=== PATIENT | male | born 1950 | race Caucasian/White ===

== ENCOUNTER 2017-01-14 05:29 | Inpatient (IN) | payer OTHER, BC ==
[2016-12-16 12:57] VITALS: BMI 31.0
--- NOTE | 2016-12-16 13:28 | PAT Medication Instructions ---
Service Date Dec 16, 2016. Current Home Medication List Albuterol Hfa (Ventolin Hfa), 2-4 PUFFS INH Q6H PRN for Shortness of Breath Amlodipine/Benazepril (Lotrel 5MG/20MG), 1 CAP PO QAM Aspirin (Aspirin), 1 TAB PO QAM Cinnamon (Cinnamon), 1 CAP PO BID Diclofenac Sodium (Topical) (Voltaren 1% Top Gel), 1 DOSE TOP DAILY PRN for Pain Fluticasone Propionate (Nasal) (Allergy Nasal [place] 24 Ho), 1 SPRAY NA DAILY PRN for ALLERGIES Glucosamine-Chondroitin (Osteo Bi-Flex Regular Str), 1 TAB PO BID Loratadine (Loratadine), 10 MG PO QPM Meloxicam (Mobic), 7.5 MG PO BID Multiple Vitamins W/ Minerals (One Daily Mens), 1 TAB PO QAM [place]-3 Fatty Acids (Fish Oil 1200 mg), 1 CAP PO BID Medication Instructions For Your Scheduled Surgery - Hold the following medications 2 weeks prior to surgery: [place]-3 Fatty Acids (Fish Oil 1200 mg), 1 CAP PO BID Glucosamine-Chondroitin (Osteo Bi-Flex Regular Str), 1 TAB PO BID Cinnamon (Cinnamon), 1 CAP PO BID - Hold the following medications 7 days prior to surgery per surgeon's instructions: Meloxicam (Mobic), 7.5 MG PO BID - Hold the following medications 24 hours prior to surgery: Diclofenac Sodium (Topical) (Voltaren 1% Top Gel), 1 DOSE TOP DAILY PRN for Pain - Hold the following medications the morning of surgery: Amlodipine/Benazepril (Lotrel 5MG/20MG), 1 CAP PO QAM Multiple Vitamins W/ Minerals (One Daily Mens), 1 TAB PO QAM - Take the following medications the morning of surgery with a sip of water OTHERWISE NOTHING TO EAT OR DRINK AFTER MIDNIGHT: Aspirin (Aspirin), 1 TAB PO QAM Fluticasone Propionate (Nasal) (Allergy Nasal [place] 24 Ho), 1 SPRAY NA DAILY PRN for ALLERGIES Albuterol Hfa (Ventolin Hfa), 2-4 PUFFS INH Q6H PRN for Shortness of Breath ( use if needed; BRING TO HOSPITAL) - Take the following medications as scheduled the night before surgery: Loratadine (Loratadine), 10 MG PO QPM Albuterol Hfa (Ventolin Hfa), 2-4 PUFFS INH Q6H PRN for Shortness of Breath If you have any questions please call us at [phone] or [phone] or [phone]
[2016-12-16 14:00] LABS: BASO % 0.6 %; BASO ABS # 0.03 K/uL (0-0.2); COMPLETE YES; EOS % 2.2 %; HEMATOCRIT 42.4 % (42-52); IG% 0.2 %; LYMPH % 31.9 %; LYMPH ABS # 1.48 K/uL (1.2-3.4); MEAN CELL VOLUME 89.6 fL (80-100); MEAN CORPUSCULAR HEMOGLOBIN 31.5 pg (25-34); MEAN CORPUSCULAR HGB CONC 35.1 g/dl (32-36); MEAN PLATELET VOLUME 9.6 fL (7.4-10.4); MONO % 10.1 %; PLATELET COUNT 219 K/uL (130-400); RED BLOOD COUNT 4.73 M/uL (4.7-6.1); WHITE BLOOD COUNT 4.64 K/uL (4.8-10.8)
[2016-12-16 14:08] LABS: PROTHROMBIN TIME (PATIENT) 10.5 SECONDS (9.0-12.0)
--- NOTE | 2016-12-16 14:08 | DIAGNOSTIC IMAGING REPORT ---
CHEST PREADMISSION(PA/LAT) CLINICAL HISTORY: Preoperative evaluation. COMPARISON STUDY: Chest radiograph 02/24/2013. FINDINGS: Anterior cervical spine fusion is incidentally noted. There is evidence for bilateral distal clavicular resections. No pneumothorax or pleural effusion is present. There is no evidence of pulmonary edema. Borderline cardiomegaly is noted. Linear bibasilar opacities favor atelectasis or scarring. IMPRESSION: No acute cardiopulmonary findings. Electronically signed by: Kirit Mackenzie M.D. 12/16/2016 2:07 PM Dictated Date/Time: 12/16/2016 2:06 PM
[2016-12-16 14:13] LABS: URINE APPEARANCE CLEAR (CLEAR); URINE BILIRUBIN NEG (NEG); URINE COLOR YELLOW; URINE NITRITE NEG (NEG); URINE PH 7.5 (4.5-7.5); URINE SPECIFIC GRAVITY 1.013 (1.000-1.030); UROBILINOGEN NEG (NEG); ZZUR CULT IF INDIC CLEAN CATCH NO
[2016-12-16 14:23] LABS: MANUAL MICROSCOPIC REQUIRED? NO; REVIEW REQ? NO
[2016-12-16 14:25] LABS: BUN/CREATININE RATIO 15.6 (10-20); CALCIUM 8.5 mg/dl (8.5-10.1); CREATININE 0.67 mg/dl (0.60-1.40); ESTIMATED AVERAGE GLUCOSE 117 mg/dl; HA1C FLAG Normal (Normal); POTASSIUM 3.3 mmol/L (3.5-5.1)
--- NOTE | 2017-01-13 16:55 | History and Physical ---
History & Physical Date & Time of Service: Jan 13, 2017 at 16:51 Chief Complaint: Right Knee Degenerative Joint Disease Primary Care Physician: Nelly Lyons M.D. History of Present Illness Source: patient Past Medical/Surgical History Medical Problems: (1) Benign hypertension Status: Chronic (2) degenerative disc disease Status: Chronic (3) Hyperlipidemia Status: Chronic Social History Smoking Status: Never Smoker Alcohol Use: none Drug Use: none Marital Status: Immunizations History of Influenza Vaccine: Yes Influenza Vaccine Date: Aug 27, 2012 History of Tetanus Vaccine?: Yes Tetanus Immunization Date: November 25, 2007 History of Pneumococcal: Yes Pneumococcal Date: December 02, 2009 History of Hepatitis B Vaccine: No Hepatitis Immunization Date: Mar 29, 2000 Allergies Coded Allergies: No Known Allergies (Verified , 12/16/16) Home Medications Scheduled Amlodipine/Benazepril (Lotrel 5MG/20MG), 1 CAP PO QAM Aspirin (Aspirin), 1 TAB PO QAM Cinnamon (Cinnamon), 1 CAP PO BID Glucosamine-Chondroitin (Osteo Bi-Flex Regular Str), 1 TAB PO BID Loratadine (Loratadine), 10 MG PO QPM Meloxicam (Mobic), 7.5 MG PO BID Multiple Vitamins W/ Minerals (One Daily Mens), 1 TAB PO QAM [place]-3 Fatty Acids (Fish Oil 1200 mg), 1 CAP PO BID Scheduled PRN Albuterol Hfa (Ventolin Hfa), 2-4 PUFFS INH Q6H PRN for Shortness of Breath Diclofenac Sodium (Topical) (Voltaren 1% Top Gel), 1 DOSE TOP DAILY PRN for Pain Fluticasone Propionate (Nasal) (Allergy Nasal [place] 24 Ho), 1 SPRAY NA DAILY PRN for ALLERGIES Review of Systems Constitutional: No fever, No chills, No sweats Eyes: No worsening of vision ENT: No hearing loss, No unusual epistaxis Respiratory: No cough, No shortness of breath Cardiovascular: No chest pain Physical Exam General Appearance: WD/WN, no apparent distress Head: normocephalic, atraumatic Eyes: PERRL, EOMI ENT: normal ENT inspection Neck: supple, no adenopathy Respiratory/Chest: lungs clear Cardiovascular: regular rate, rhythm Abdomen/GI: normal bowel sounds, non tender + crepitation w ROM at Rt knee, 0-125 ROM, medial jt line tenderness, varus, 5/ 5 strength. Impression Assessment and Plan Right Knee OA Plan for Right TKA. Advanced Directives Existing Living Will: Yes Existing Power of Application Manager: Yes
[2017-01-14] VITALS (10 sets, daily range): BP systolic 101–148; BP diastolic 57–79; PULSE 62–84; TEMP 36.5–36.8; O2SAT 92–97; Ht 167.6 cm; Wt 87.0 kg
[~2017-01-14] VITALS: Ht 167.6 cm; Wt 87.0 kg
[~2017-01-14 05:29] MED LIST: AMLO5CAP2 PO; ASPI81CH2 PO; CINN500T PO; DICL1GEL12 TOP; FLUT50SP45; GLUCTAB18 PO; LORA10CA10 PO; MELO7.5T5 PO; MULT-106 PO; OMEG5CAP PO; VNTHFA/IN INH
[2017-01-14] MEDS ORDERED: METOCLOPRAMIDE HCL 10 MG TAB PO SCH (06:00)
[2017-01-14] MEDS ORDERED: ROPIVACAINE 5MG/ML 30 ML 150 MG, BUPIVACAINE/EPINEPHR 0.5% MPF 30 ML, KETOROLAC TROMETH... INFIL SCH ×7 (06:00)
[2017-01-14] MEDS ORDERED: LACTATED RINGER'S 1000ML 1,000 ML IV SCH (06:00)
[2017-01-14] MEDS ORDERED: ACETAMINOPHEN 500 MG TAB PO SCH (06:00)
[2017-01-14] MEDS ORDERED: LACTATED RINGER'S 1000ML IV SCH (06:00)
[2017-01-14] MEDS ORDERED: DEXAMETHASONE 4 MG TAB PO SCH (06:00)
[2017-01-14] MEDS ORDERED: GABAPENTIN 300 MG CAP PO SCH (06:00)
[2017-01-14] MEDS ORDERED: CeleBREX 200 MG CAP PO SCH (06:00)
[2017-01-14] MEDS ORDERED: LACTATED RINGER'S 1000ML 500 ML IV ONE (06:00)
[2017-01-14] MEDS ORDERED: FAMOTIDINE 20 MG TAB PO SCH (06:00)
[2017-01-14] MEDS ORDERED: CEFAZOLIN 2000 MG/60 ML D5W 60 ML IV SCH (06:00)
[2017-01-14] MEDS: TRANEXAMIC ACID INJ 1,000 MG in SODIUM CHLORIDE 0.9% 100ML 100 ML IV SCH ×2 (06:11→06:30)
[2017-01-14] MEDS ORDERED: POVIDONE-IODINE OP SOLN 30 ML BTL ONE (06:52)
[2017-01-14] MEDS ORDERED: BACITRACIN 50000 UNIT VIAL ONE (06:52)
[2017-01-14] MEDS ORDERED: ORTHO JOINT ANESTHETIC ONE (06:52)
[2017-01-14] MEDS ORDERED: FENTANYL CITRATE INJ 50 MCG/1 ML 2 ML VIAL ONE (06:59)
[2017-01-14] MEDS ORDERED: MIDAZOLAM HCL 1 MG/ML 2ML VIAL ONE ×2 (06:59→09:09)
--- NOTE | 2017-01-14 07:28 | History & Physical Bridge Note ---
H&P Re-Evaluation Bridge Note: I have examined the patient, reviewed the History & Physical and in the interval since the performance of the History & Physical I have noted the following changes of clinical significance: No changes noted
[2017-01-14] MEDS ORDERED: BUPIVACAINE/EPINEPHRINE 0.25% 1:200,000 30 ML VIAL ONE (07:38)
[2017-01-14] MEDS ORDERED: BUPIVACAINE 0.5 % 5 MG/1 ML PF 10ML VIAL ONE (07:38)
[2017-01-14] MEDS ORDERED: PROPOFOL IV EMULSION 10 MG/ML 20 ML VIAL IV ONE (07:56)
[2017-01-14] MEDS ORDERED: LIDOCAINE HCL 2% 2 ML VIAL (20MG/ML) ONE (07:56)
[2017-01-14] MEDS ORDERED: HYDROmorphone INJ 1 MG/ML SYR IV PRN (09:00)
[2017-01-14] MEDS ORDERED: EpHEDrine SULFATE INJ 50 MG/ML AMP IV PRN (09:00)
[2017-01-14] MEDS ORDERED: MEPERIDINE HCL 25 MG/ML CARP IV PRN (09:00)
[2017-01-14] MEDS ORDERED: ONDANSETRON INJ 2 MG/ML 2 ML VIAL IV PRN ×2 (09:00→09:30)
[2017-01-14] MEDS ORDERED: FENTANYL CITRATE INJ 50 MCG/1 ML 2 ML VIAL IV PRN (09:00)
[2017-01-14] MEDS ORDERED: ATROPINE SULFATE 0.1 MG/ML 5ML SYR IV PRN (09:00)
[2017-01-14] MEDS ORDERED: LABETALOL HCL IV 5 MG/ML 20ML IV PRN (09:00)
[2017-01-14] MEDS ORDERED: EpHEDrine SULFATE 50MG/5ML SYR ONE (09:14)
[2017-01-14] MEDS ORDERED: SOD PHOSPHATE/SOD BIPHOSPHATE ENEMA 132 ML BTL PR PRN (09:30)
[2017-01-14] MEDS ORDERED: FLUTICASONE PROPIONATE NA SPR 16 GM BTL PRN (09:30)
[2017-01-14] MEDS ORDERED: ALBUTEROL HFA 8 GM INHALER INH PRN (09:30)
[2017-01-14] MEDS ORDERED: METOCLOPRAMIDE HCL INJ 5 MG/ML 2 ML VIAL IV PRN (09:30)
[2017-01-14] MEDS ORDERED: BISACODYL 10 MG SUPP PR PRN (09:30)
[2017-01-14] MEDS ORDERED: ZOLPIDEM TARTRATE 5 MG TAB PO PRN (09:30)
[2017-01-14] MEDS ORDERED: MoRPHine SULFATE 2 MG/ML CARP IV PRN ×2 (09:30→11:15)
[2017-01-14] MEDS ORDERED: MAGNESIUM HYDROXIDE SUSP 30 ML UDC PO PRN (09:30)
--- NOTE | 2017-01-14 09:39 | [facility] Operative Report ---
Operative Report Operative Date Jan 14, 2017. Pre-Operative Diagnosis Right knee degenerative joint disease Post-Operative Diagnosis same Procedure(s) Performed Right total knee arthroplasty Surgeon Dr. العراقي Senior Writer Surgeon(s) Newton Burgos PA-C Estimated Blood Loss 5 cc Findings Tricompartmental DJD grade 4 medial compartment. Specimens A: right knee bone and tissue Indications End-stage DJD OA Description of Procedure The patient was taken to the operating room and anesthetized under spinal anesthetic by adductor nerve block and later orthomix. Patient was placed supine on the the operating table. A pneumatic tourniquet was placed about the right upper thigh. The knee exam demonstrated that he had a stiff knee had a 10 flexion contracture and flexion only 115 -120. An anterior longitudinal incision was made across the knee. Skin flaps were elevated. An incision was made into the medial retinaculum and extended up into the mid third of the quadriceps tendon and extended down to the tibial tubercle. Intra-articular findings demonstrated tracking normal DJD but grade 4 in the knee compartment. The knee was exposed by excising cruciate ligaments and menisci. The infrapatellar fat pad was resected. The fat pad over the anterior femur at the upper aspect of the articular surface was resected for placement of the component in that area. A subperiosteal peel lateral release was performed around the patella. The total knee arthroplasty system was utilized for the procedure. The custom femoral cutting guide was pinned in position. The distal femoral cut was made. The size 5, 5 in 1 cutting block was placed. The anterior posterior and chamfer cuts were made. The knee was extended and a free hand cut technique was performed to the patella. The patella with was measured and the width was reproduced using a 32 mm patella component. 3 drill holes are made for the patella component pegs. The tibia was then subluxed. The custom tibial cutting block was pinned in position and the proximal tibial cut was made with the oscillating saw. The size 5 tibial trial was externally rotated in line with the tibial tubercle and pinned in position. The punch for the stem was used and the collet was placed. Tibial trials were used for the insert. The size 9 mm trial gave balanced ligaments through full range of motion. Patella tracking was assessed with range of motion. The patella tracked centrally. The trials were removed. The Orthomix anesthetic cocktail was injected per protocol. The cut bone surfaces and soft tissue were copiously irrigated with antibiotic solution with bacitracin. The final components were cemented with Simplex cement. The final components were the 5 Oxinium posterior stabilized Mccauley nephew journey 2.0 femur and the 5 tibial baseplate and the 9 mm high flex posterior stabilized polyethylene and the 32 mm patella. While the cement cured the Betadine soak was used per protocol. When the cement cured the knee was copiously irrigated with pulsatile lavage antibiotic solution with bacitracin. 2 drains were brought out laterally connected to Hemovac. The quadriceps tendon and medial midaxial were closed with interrupted [id number] #1 Vicryl sutures. The knee was taken through full range of motion and repair was secure. The subcutaneous tissues were closed and did 2-0 Vicryl sutures. The skin was closed with. A sterile dressing was applied. The tourniquet was let down and the patient had good capillary refill to the extremity. The patient tolerated the procedure well. My physician certified nursing assistant Alfredo CASTRO assisted in the procedure including prepping draping leg positioning soft tissue retraction instrument management and assisted in the closure ,dressings application and will participate in postoperative care the patient. I attest to the content of the Intraoperative Record and any orders documented therein. Any exceptions are noted below.
--- NOTE | 2017-01-14 09:49 | DIAGNOSTIC IMAGING REPORT ---
RIGHT KNEE 2 VIEWS CLINICAL HISTORY: Postoperative examination COMPARISON: None. DISCUSSION: There are postsurgical changes of a total right knee arthroplasty and patellar resurfacing. The femoral and tibial components appear well seated. Overlying skin aleksandra and surgical drains are visualized. There is air within the soft tissues consistent with recent surgery. IMPRESSION: Postsurgical changes of a total right knee arthroplasty. Electronically signed by: Alejo Herman M.D. 01/14/2017 9:48 AM Dictated Date/Time: 01/14/2017 9:47 AM
--- NOTE | 2017-01-14 11:10 | Anesthesiology Progress Note ---
Anesthesia Post Op Note Date & Time Jan 14, 2017 at 11:09 Vital Signs Pain Intensity: 0.0 Vital Signs Past 12 Hours Date Time Temp Pulse Resp B/P (MAP) Pulse Ox O2 Delivery O2 Flow Rate FiO2 01/14/17 10:42 80 16 125/79 (94) 92 Nasal Cannula 2.0 01/14/17 10:20 Nasal Cannula 2.0 01/14/17 10:15 94 Nasal Cannula 2.0 01/14/17 10:13 36.5 73 16 126/65 (85) 92 Nasal Cannula 2.0 01/14/17 10:00 84 19 115/65 94 Nasal Cannula 2 01/14/17 09:50 36.3 88 16 135/79 94 Nasal Cannula 2 01/14/17 09:40 65 14 128/65 100 Mask 10 01/14/17 09:30 79 15 122/67 99 Mask 10 01/14/17 09:23 36.2 82 19 117/64 94 Mask 10 01/14/17 05:43 36.7 65 18 148/65 97 Room Air Notes Mental Status: alert / awake / arousable, participated in evaluation Pt Amnestic to Procedure: Yes Nausea / Vomiting: adequately controlled Pain: adequately controlled Airway Patency, RR, SpO2: stable & adequate BP & HR: stable & adequate Hydration State: stable & adequate Neuraxial Anesthesia: was administered, sensory block is resolving Anesthetic Complications: no major complications apparent
[2017-01-14] MEDS ORDERED: MoRPHine SULFATE 4 MG/ML 1 ML CARP\\VIAL IV PRN (11:15)
[2017-01-14] MEDS: D5W AND 1/2NSS + 20MEQ KCL 1,000 ML IV SCH ×2 (11:32→21:35)
[2017-01-14] MEDS: ACETAMINOPHEN 500 MG TAB PO SCH ×2 (13:34→21:00)
[2017-01-14] MEDS: CEFAZOLIN IV 2,000 MG in DEXTROSE 5% 50ML 50 ML IV SCH ×2 (15:56→23:23)
--- NOTE | 2017-01-14 17:53 | Medical Consult ---
Consultation Date of Consultation: Jan 14, 2017. Attending Physician: Panchito العراقي M.D. Reason for Consultation: Management of Medical Problems History of Present Illness 66 Year old male with known past medial history of Hypertension, Hyperlipidemia , Chronic DJD underwent Right TKA earlier today and is doing well post- operatively. Lying in his bed and is awake/alert. pain has been tolerable with the help of pain medications. Denies any nausea/vomiting/SOB. Social History Smoking Status: Never Smoker Smokeless Tobacco Use: No Alcohol Use: none Drug Use: none Marital Status: Housing Status: lives with family Occupation Status: retired Allergies Coded Allergies: No Known Allergies (Verified , 01/14/17) Current Inpatient Medications Current Inpatient Medications Medications (Trade) Dose Ordered Sig/Keyanna Route Start Time Stop Time Status Last Admin Dose Admin Cefazolin Sodium 60 ml @ 100 mls/hr PREOP IV 01/14/17 06:00 01/14/17 18:00 01/14/17 07:35 100 MLS/HR Acetaminophen (Tylenol Tab) 1,000 mg PREOP PO 01/14/17 06:00 01/14/17 18:00 01/14/17 06:10 1,000 MG Celecoxib (CeleBREX CAP) 200 mg PREOP PO 01/14/17 06:00 01/14/17 18:00 01/14/17 06:11 200 MG Dexamethasone (Decadron Tab) 8 mg PREOP PO 01/14/17 06:00 01/14/17 18:00 01/14/17 06:10 8 MG Famotidine (Pepcid Tab) 20 mg PREOP PO 01/14/17 06:00 01/14/17 18:00 01/14/17 06:10 20 MG Gabapentin (Neurontin Cap) 300 mg PREOP PO 01/14/17 06:00 01/14/17 18:00 01/14/17 06:09 300 MG Metoclopramide HCl (Reglan Tab) 10 mg PREOP PO 01/14/17 06:00 01/14/17 18:00 01/14/17 06:09 10 MG Tranexamic Acid 1000 mg/Sodium Chloride 110 ml @ 660 mls/hr TODAY@06,0630 IV 01/14/17 06:00 01/14/17 18:00 01/14/17 06:11 660 MLS/HR Albuterol (Ventolin Hfa Inhaler) as above Q6H PRN INH 01/14/17 09:30 02/13/17 09:29 Fluticasone Propionate (Flonase Nasal [place]) 1 sprays DAILY PRN NA 01/14/17 09:30 02/13/17 09:29 Loratadine (Claritin Tab) 10 mg QPM PO 01/14/17 21:00 02/13/17 20:59 Potassium Chloride/Dextrose/ Sod Cl 1,000 ml @ 100 mls/hr Q10H IV 01/14/17 12:00 01/15/17 11:59 01/14/17 11:32 100 MLS/HR Cefazolin Sodium 2000 mg/Dextrose 60 ml @ 100 mls/hr Q8H IV 01/14/17 16:00 01/15/17 00:35 01/14/17 15:56 100 MLS/HR Celecoxib (CeleBREX CAP) 200 mg BID PO 01/14/17 21:00 02/13/17 20:59 Oxycodone HCl (Roxicodone Immediate Rel Tab) 1 TABLET FOR PAIN RATING... Q4H PRN PO 01/14/17 09:30 01/28/17 09:29 Oxycodone HCl (Oxycontin Tab) 10 mg Q12 PO 01/14/17 21:00 01/28/17 20:59 Acetaminophen (Tylenol Tab) 1,000 mg Q8H PO 01/14/17 14:00 02/13/17 13:59 01/14/17 13:34 1,000 MG Magnesium Hydroxide (Milk Of Magnesia Susp) 30 ml Q6H PRN PO 01/14/17 09:30 02/13/17 09:29 Bisacodyl (Dulcolax Supp) 10 mg DAILY PRN VA 01/14/17 09:30 02/13/17 09:29 Sodium Biphosphate/ Sodium Phosphate (Fleet Enema) 132 ml DAILY PRN VA 01/14/17 09:30 02/13/17 09:29 Docusate Sodium (coLACE CAP) 100 mg BID PO 01/14/17 21:00 02/13/17 20:59 Diphenhydramine HCl (Benadryl Cap) 25 mg Q8H PRN PO 01/14/17 09:30 02/13/17 09:29 Zolpidem Tartrate (Ambien Tab) 5 mg HSZ PRN PO 01/14/17 09:30 02/13/17 09:29 Multivitamins (Multivitamin Tab) 1 tab QAM PO 01/15/17 09:00 02/14/17 08:59 Ondansetron HCl (Zofran Inj) 4 mg Q6H PRN IV 01/14/17 09:30 02/13/17 09:29 Metoclopramide HCl (Reglan Inj) 10 mg Q6H PRN IV 01/14/17 09:30 02/13/17 09:29 Pantoprazole Sodium (Protonix Tab) 40 mg QAM PO 01/15/17 09:00 02/14/17 08:59 Tramadol HCl (Ultram Tab) 1 tablet for pain rating... Q4H PRN PO 01/14/17 09:30 02/13/17 09:29 Aspirin (Ecotrin Tab) 81 mg BID PO 01/14/17 21:00 02/13/17 20:59 Morphine Sulfate (MoRPHine SULFATE INJ) 2 mg Q2H PRN IV 01/14/17 11:15 01/28/17 11:14 Morphine Sulfate (MoRPHine SULFATE INJ) 4 mg Q2H PRN IV 01/14/17 11:15 01/28/17 11:14 Amlodipine Besylate (Norvasc Tab) 5 mg QAM PO 01/15/17 09:00 02/14/17 08:59 Enalapril Maleate (Vasotec Tab) 20 mg QAM PO 01/15/17 09:00 02/14/17 08:59 Review of Systems As per history of present illness, all other ROS negative Physical Exam Date Time Temp Pulse Resp B/P (MAP) Pulse Ox O2 Delivery O2 Flow Rate FiO2 01/14/17 16:28 93 Room Air 01/14/17 14:56 36.8 77 18 101/60 (74) 96 Nasal Cannula 2.0 01/14/17 13:14 84 16 117/69 (85) 97 Nasal Cannula 2.0 01/14/17 12:18 74 18 115/67 (83) 95 Nasal Cannula 2.0 01/14/17 11:15 78 16 120/69 (86) 94 Nasal Cannula 2.0 01/14/17 10:42 80 16 125/79 (94) 92 Nasal Cannula 2.0 01/14/17 10:20 Nasal Cannula 2.0 01/14/17 10:15 94 Nasal Cannula 2.0 01/14/17 10:13 36.5 73 16 126/65 (85) 92 Nasal Cannula 2.0 01/14/17 10:00 84 19 115/65 94 Nasal Cannula 2 01/14/17 09:50 36.3 88 16 135/79 94 Nasal Cannula 2 01/14/17 09:40 65 14 128/65 100 Mask 10 01/14/17 09:30 79 15 122/67 99 Mask 10 01/14/17 09:23 36.2 82 19 117/64 94 Mask 10 01/14/17 05:43 36.7 65 18 148/65 97 Room Air General Appearance: WD/WN, In no apparent distress Head: normocephalic, atraumatic Eyes: PERRL, EOMI ENT: normal ENT inspection Neck: supple, Midline trachea, no adenopathy Respiratory/Chest: lungs clear B/L on auscultation Cardiovascular: regular rate, rhythm Abdomen/GI: normal bowel sounds, non tender Extremities: B/L pedal pulses are present. can move toes of the right foot. Assessment & Plan S/P Right Knee Arthroplasty: POD # 0. Clinically & hemodynamically doing well. -Pain medications as needed as per severity of pain -PT/OT & DVT Prophylaxis as per Surgical team -Bowel regimen Hypokalemia: Due to IVF. -Replace -Check labs in AM Hypertension: Monitoring BP closely -Continue home medications from AM under parameters. Dyslipidemia: Stable. Thank you for this consultation. We will follow the patient with you during their hospital stay. You can reach a [facility] of [facility]/02 via pager @ .
[2017-01-14] MEDS ORDERED: POTASSIUM CHLORIDE 20 MEQ TABCR PO ONE (18:00)
[2017-01-14] MEDS: OXYCODONE HCL IR 5 MG TAB (IMMEDIATE RELEASE) PO PRN (19:34)
[2017-01-14] MEDS: OXYCODONE HCL 10 MG TABCR (OXYCONTIN) PO SCH (20:57)
[2017-01-14] MEDS: ASPIRIN 81 MG ECTAB PO SCH (20:58)
[2017-01-14] MEDS: LORATADINE 10 MG TAB PO SCH (20:58)
[2017-01-14] MEDS: CeleBREX 200 MG CAP PO SCH (20:59)
[2017-01-14] MEDS: DOCUSATE SODIUM 100 MG CAP PO SCH (20:59)
[2017-01-14] MEDS ORDERED: CINNAMON PO SCH (21:00)
[2017-01-15 03:01] VITALS: BP 112/61; PULSE 59; TEMP 36.6; O2SAT 96
[2017-01-15] MEDS: ACETAMINOPHEN 500 MG TAB PO SCH ×3 (05:25→21:32)
[2017-01-15 05:47] LABS: HEMATOCRIT 33.9 % (42-52); MEAN CELL VOLUME 90.6 fL (80-100); MEAN CORPUSCULAR HGB CONC 34.2 g/dl (32-36); MEAN PLATELET VOLUME 10.3 fL (7.4-10.4); PLATELET COUNT 206 K/uL (130-400); RED BLOOD COUNT 3.74 M/uL (4.7-6.1)
[2017-01-15 06:14] LABS: BUN/CREATININE RATIO 17.8 (10-20); CALCIUM 8.2 mg/dl (8.5-10.1); CREATININE 0.78 mg/dl (0.60-1.40); MAGNESIUM 2.4 mg/dl (1.8-2.4); POTASSIUM 4.2 mmol/L (3.5-5.1)
[2017-01-15] MEDS: D5W AND 1/2NSS + 20MEQ KCL 1,000 ML IV SCH (07:38)
[2017-01-15 08:16] VITALS: BP 132/70; PULSE 59; TEMP 36.5; O2SAT 98
--- NOTE | 2017-01-15 08:29 | Orthopedic Progress Note ---
Orthopedic Progress Note Date of Service Jan 15, 2017. Subjective Post OP Day: 1 Reports: feeling well, pain controlled w PO medications, Denies: complaints, chest pain, SOB, nausea / vomiting, light headedness, calf pain Objective calves soft nontender, N/V intact, capillary refill less than 2 sec., dressing C /D/I, A&O x3, toes mobile Date Time Temp Pulse Resp B/P (MAP) Pulse Ox O2 Delivery O2 Flow Rate FiO2 01/15/17 08:16 36.5 59 16 132/70 (90) 98 Room Air 01/15/17 03:01 36.6 59 16 112/61 (78) 96 Room Air 01/14/17 23:23 Room Air 01/14/17 23:13 36.5 62 14 108/57 (74) 96 Room Air 01/14/17 19:33 36.8 66 18 114/65 (81) 94 Room Air 01/14/17 16:28 93 Room Air 01/14/17 15:15 Room Air 01/14/17 14:56 36.8 77 18 101/60 (74) 96 Nasal Cannula 2.0 01/14/17 13:14 84 16 117/69 (85) 97 Nasal Cannula 2.0 01/14/17 12:18 74 18 115/67 (83) 95 Nasal Cannula 2.0 01/14/17 11:15 78 16 120/69 (86) 94 Nasal Cannula 2.0 01/14/17 10:42 80 16 125/79 (94) 92 Nasal Cannula 2.0 01/14/17 10:20 Nasal Cannula 2.0 01/14/17 10:15 94 Nasal Cannula 2.0 01/14/17 10:13 36.5 73 16 126/65 (85) 92 Nasal Cannula 2.0 01/14/17 10:00 84 19 115/65 94 Nasal Cannula 2 01/14/17 09:50 36.3 88 16 135/79 94 Nasal Cannula 2 01/14/17 09:40 65 14 128/65 100 Mask 10 01/14/17 09:30 79 15 122/67 99 Mask 10 01/14/17 09:23 36.2 82 19 117/64 94 Mask 10 Laboratory Results 24 Hours: Test 01/15/17 05:07 Hematocrit 33.9 % Hemoglobin 11.6 g/dL Assessment & Plan Assessment: POD #1, Right TKA Plan: PT/OT DVT proph- ASA D/C planning- OPPT As per medicine Inhouse Planning Pain Management: Celebrex, Oxycontin, Ultram, Morphine, PO Tylenol, Oxy IR DVT Prophylaxis: TEDs, SCDs, ASA Discharge Planning Discharge Planning: home with oppt Pain Management: Celebrex, Oxycontin, PO Tylenol, Oxy IR DVT Prophylaxis: TEDs, ASA Therapy: Physical Therapy, Occupational Therapy
[2017-01-15] MEDS ORDERED: AMLODIPINE PO SCH (09:00)
[2017-01-15] MEDS ORDERED: BENAZEPRIL PO SCH (09:00)
[2017-01-15] MEDS: CeleBREX 200 MG CAP PO SCH ×2 (09:22→21:31)
[2017-01-15] MEDS: ASPIRIN 81 MG ECTAB PO SCH ×2 (09:22→21:31)
[2017-01-15] MEDS: OXYCODONE HCL 10 MG TABCR (OXYCONTIN) PO SCH ×2 (09:23→21:31)
[2017-01-15] MEDS: ENALAPRIL MALEATE 10 MG TAB PO SCH (09:23)
[2017-01-15] MEDS: MULTIVITAMIN TAB PO SCH (09:23)
[2017-01-15] MEDS: PANTOprazole SOD 40 MG TAB PO SCH (09:24)
[2017-01-15] MEDS: DOCUSATE SODIUM 100 MG CAP PO SCH ×2 (09:24→21:31)
[2017-01-15] MEDS: AMLODIPINE BESYLATE 5 MG TAB PO SCH (09:24)
[2017-01-15 12:06] VITALS: BP 110/72; PULSE 62; TEMP 36.4; O2SAT 97
[2017-01-15] MEDS: OXYCODONE HCL IR 5 MG TAB (IMMEDIATE RELEASE) PO PRN ×3 (12:27→21:33)
[2017-01-15 15:24] VITALS: BP 118/65; PULSE 62; TEMP 36.4; O2SAT 95
--- NOTE | 2017-01-15 17:07 | Progress Note ---
Internal Med Progress Note Date of Service: Jan 15, 2017. Provider Documentation: SUBJECTIVE: Patient is sitting in his chair and does not seem to be in any distress. Pain has been tolerable. Did PT earlier today. Had a small BM earlier today. No other new change or complaint. OBJECTIVE: Vital Signs-as noted below Examination: General Appearance: WD/WN, In no apparent distress Head: normocephalic, atraumatic Eyes: PERRL, EOMI ENT: normal ENT inspection Neck: supple, Midline trachea, no adenopathy Respiratory/Chest: lungs clear B/L on auscultation Cardiovascular: regular rate, rhythm Abdomen/GI: normal bowel sounds, non tender Extremities: B/L pedal pulses are present. can move toes of the right foot. Lab data as noted below. ASSESSMENT & PLAN: S/P Right Knee Arthroplasty: POD # 1. Clinically & hemodynamically doing well. -Pain medications as needed as per severity of pain -PT/OT & DVT Prophylaxis as per Surgical team -Bowel regimen Hypokalemia: Resolved. Hypertension: Monitoring BP closely -Continue home medications under parameters. Dyslipidemia: Stable. Thank you for this consultation. We will follow the patient with you during their hospital stay. You can reach a [facility] 02/02 via pager @ . Vital Signs: Date Time Temp Pulse Resp B/P (MAP) Pulse Ox O2 Delivery O2 Flow Rate FiO2 01/15/17 15:24 36.4 62 18 118/65 (82) 95 Room Air 01/15/17 15:15 Room Air 01/15/17 12:06 36.4 62 18 110/72 (85) 97 Room Air 01/15/17 08:30 Room Air 01/15/17 08:16 36.5 59 16 132/70 (90) 98 Room Air 01/15/17 03:01 36.6 59 16 112/61 (78) 96 Room Air 01/14/17 23:23 Room Air 01/14/17 23:13 36.5 62 14 108/57 (74) 96 Room Air 01/14/17 19:33 36.8 66 18 114/65 (81) 94 Room Air Lab Results: Results Past 24 Hours Test 01/15/17 05:07 Range/Units White Blood Count 14.20 4.8-10.8 K/uL Red Blood Count 3.74 4.7-6.1 M/uL Hemoglobin 11.6 14.0-18.0 g/dL Hematocrit 33.9 42-52 % Mean Corpuscular Volume 90.6 80-100 fL Mean Corpuscular Hemoglobin 31.0 25-34 pg Mean Corpuscular Hemoglobin Concent 34.2 32-36 g/dl RDW Standard Deviation 41.6 36.4-46.3 fL RDW Coefficient of Variation 12.5 11.5-14.5 % Platelet Count 206 130-400 K/uL Mean Platelet Volume 10.3 7.4-10.4 fL Sodium Level 141 136-145 mmol/L Potassium Level 4.2 3.5-5.1 mmol/L Chloride Level 111 98-107 mmol/L Carbon Dioxide Level 23 21-32 mmol/L Anion Gap 7.0 3-11 mmol/L Blood Urea Nitrogen 14 7-18 mg/dl Creatinine 0.78 0.60-1.40 mg/dl Est Creatinine Clear Calc Drug Dose 96.3 ml/min Estimated GFR () 109.0 Estimated GFR (Non- 94.1 BUN/Creatinine Ratio 17.8 10-20 Random Glucose 135 70-99 mg/dl Calcium Level 8.2 8.5-10.1 mg/dl Magnesium Level 2.4 1.8-2.4 mg/dl
[2017-01-15] MEDS: LORATADINE 10 MG TAB PO SCH (21:31)
[2017-01-15 23:03] VITALS: BP 117/65; PULSE 55; TEMP 36.6; O2SAT 99
[2017-01-16] MEDS: TRAMADOL HCL 50 MG TAB PO PRN ×2 (00:48→09:06)
[2017-01-16] MEDS: ACETAMINOPHEN 500 MG TAB PO SCH ×2 (05:45→14:22)
[2017-01-16] MEDS: OXYCODONE HCL IR 5 MG TAB (IMMEDIATE RELEASE) PO PRN ×2 (05:46→16:36)
[2017-01-16 06:00] VITALS: BP 123/72; PULSE 64; TEMP 36.5; O2SAT 95
[2017-01-16 06:03] LABS: HEMATOCRIT 31.5 % (42-52); MEAN CELL VOLUME 93.2 fL (80-100); MEAN CORPUSCULAR HEMOGLOBIN 31.7 pg (25-34); MEAN PLATELET VOLUME 10.4 fL (7.4-10.4); PLATELET COUNT 187 K/uL (130-400); RED BLOOD COUNT 3.38 M/uL (4.7-6.1); WHITE BLOOD COUNT 7.85 K/uL (4.8-10.8)
[2017-01-16 06:30] LABS: BUN/CREATININE RATIO 20.2 (10-20); CALCIUM 8.1 mg/dl (8.5-10.1); CREATININE 0.78 mg/dl (0.60-1.40); POTASSIUM 3.9 mmol/L (3.5-5.1)
[2017-01-16 07:45] VITALS: BP 112/58; PULSE 63; TEMP 36.4; O2SAT 95
--- NOTE | 2017-01-16 08:52 | Discharge Instructions ---
Discharge Instructions Date of Service Jan 16, 2017. Admission Reason for Admission: Right Knee Degenerative Joint Disease Discharge Discharge Diagnosis / Problem: Right Knee Djd Discharge Goals Goal(s): Decrease discomfort, Improve function Activity Recommendations Activity Limitations: per Instructions/Follow-up section Weightbearing Status: Left weightbearing (as tolerated) . Instructions / Follow-Up Instructions / Follow-Up ACTIVITY RECOMMENDATIONS: SELF CARE INSTRUCTIONS AFTER TOTAL KNEE REPLACEMENT A. You may need to continue a physical therapy program after discharge from the hospital. There are several options available to you. Your doctor will assist you in selecting the best one for you. 1. An out-patient facility 2 to 3 times a week for therapy or home therapy. 2. Continue working on all exercises taught to you in the hospital. Your goals should be to increase bending of your knee to 90 degrees and beyond and to fully straighten your knee. B. You may progress at your own pace from walking with a walker or crutches to a cane; then to no assistive devices. C. Make walking a part of your daily routine. Be up as much as comfortable with rest periods throughout the day. Rest with leg elevation is very important. Use the ice wrap frequently for the first 3-4 weeks. D. There are no restrictions on activities. You may ride in a car, shop, participate in snow remover and all social activities. E. Wear the long elastic stockings (JOSEFINA hose) 20 hours a day for 2 weeks after surgery. They can be removed several times a day for laundering and for a bath. F. You may shower, no tub baths until cleared by your doctor. SPECIAL CARE INSTRUCTIONS: VERY IMPORTANT TO READ AND REVIEW A. There are a few signs you need to watch for after you are home. Call [facility] if you notice any of the followin. Increased severe knee pain. Some pain is expected especially when you exercise. 2. Increased swelling in your leg or knee; pain or swelling of the calf muscle in either lower leg. 3. Any fluid drainage from the incision. 4. Shortness of breath or chest pain. B. Please call [facility] at if you have any concerns or questions about your operation or recovery. The doctor or his nurse will return your call promptly. C. You must take antibiotics before dental work, bladder, bowel or other surgery. Your doctor will provide you with a permanent care to carry describing this precaution. IMPORTANT: * REMEMBER TO TAKE ASPIRIN, 81 MG, TWICE DAILY FOR 4 WEEKS UNLESS OTHERWISE DIRECTED. THIS IS YOUR BLOOD THINNER. * HIGH RISK PATIENTS MAY BE PRESCRIBED A STRONGER BLOOD THINNER. THIS WILL BE PROVIDED AT DISCHARGE. * CALL IF INCREASED PAIN, REDNESS, DRAINAGE OR FEVER GREATER THAT 101. * WEAR JOSEFINA HOSE 20 HOURS PER DAY FOR 2 WEEKS. * Silverlon- This is a large adhesive bandage that contains silver ions. This helps your incision heal by fighting off bacteria and protecting it from the outside environment. You are permitted to shower with this dressing. This will remain on your incision for 7 days and then should be removed. Some visible blood or drainage through the dressing window is normal. If there is significant drainage or leaking noted before the 7 days notify your doctor's office immediately. Once removed, keep incision clean and dry. If there is any drainage or redness noted, please call your surgeon. . FOLLOW UP VISIT: If appointment is not already scheduled: Please call [facility] to make a follow-up appointment for 2 weeks after your surgery at . Current Hospital Diet Patient's current hospital diet: Regular Diet Discharge Diet Recommended Diet: Regular Diet Procedures Procedures Performed: Right total knee arthroplasty Pending Studies Studies pending at discharge: no Laboratory Results Hemoglobin A1c Test 12/16/16 13:41 Range/Units Estimated Average Glucose 117 mg/dl Hemoglobin A1c 5.7 H 4.5-5.6 % Medical Emergencies . Who to Call and When: Medical Emergencies: If at any time you feel your situation is an emergency, please call 911 immediately. . Non-Emergent Contact Non-Emergency issues call your: Surgeon Call Non-Emergent contact if: temperature is above 101.5, your pain is not controlled, your pain is worsening, wound has increased drainage, wound has increased redness . "Provider Documentation" section prepared by Kartik Flor. . VTE Core Measure Inpt VTE Proph given/why not?: Other Anticoagulation, T.E.D. Stockings, SCD's [place] Drug Monitoring Program Search Results: patient reviewed within database, no issues identified
[2017-01-16 08:53] VITALS: O2SAT 95
[2017-01-16] MEDS ORDERED: CLB200 PO (08:57)
[2017-01-16] MEDS ORDERED: SNK PO (08:57)
[2017-01-16] MEDS ORDERED: OXYSR10 PO (08:57)
[2017-01-16] MEDS ORDERED: ASPI81CH2 PO (08:57)
[2017-01-16] MEDS ORDERED: RXC5 PO (08:57)
[2017-01-16] MEDS ORDERED: ACET-24 PO (08:57)
[2017-01-16] MEDS: PANTOprazole SOD 40 MG TAB PO SCH (09:00)
[2017-01-16] MEDS: CeleBREX 200 MG CAP PO SCH (09:03)
[2017-01-16] MEDS: DOCUSATE SODIUM 100 MG CAP PO SCH (09:03)
[2017-01-16] MEDS: ASPIRIN 81 MG ECTAB PO SCH (09:03)
[2017-01-16] MEDS: MULTIVITAMIN TAB PO SCH (09:04)
[2017-01-16] MEDS: AMLODIPINE BESYLATE 5 MG TAB PO SCH (09:05)
[2017-01-16] MEDS: ENALAPRIL MALEATE 10 MG TAB PO SCH (09:05)
[2017-01-16] MEDS: OXYCODONE HCL 10 MG TABCR (OXYCONTIN) PO SCH (09:06)
--- NOTE | 2017-01-16 09:09 | Orthopedic Progress Note ---
Orthopedic Progress Note Date of Service Jan 16, 2017. Subjective Post OP Day: 2 Reports: feeling well, Denies: complaints Objective calves soft nontender, N/V intact, dressing C/D/I (Silverlon intact), A&O x3, toes mobile Date Time Temp Pulse Resp B/P (MAP) Pulse Ox O2 Delivery O2 Flow Rate FiO2 01/16/17 08:53 95 Room Air 01/16/17 07:45 36.4 63 16 112/58 (76) 95 Room Air 01/16/17 06:00 36.5 64 18 123/72 (89) 95 Room Air 01/16/17 00:30 Room Air 01/15/17 23:03 36.6 55 14 117/65 (82) 99 Room Air 01/15/17 15:24 36.4 62 18 118/65 (82) 95 Room Air 01/15/17 15:15 Room Air 01/15/17 12:06 36.4 62 18 110/72 (85) 97 Room Air Laboratory Results 24 Hours: Test 01/16/17 05:04 Hematocrit 31.5 % Hemoglobin 10.7 g/dL Assessment & Plan Assessment: POD #2, Right TKA Plan: PT/OT DVT proph- ASA D/C planning- OPPT Plan for dc to home today Inhouse Planning Pain Management: Celebrex, Oxycontin, Ultram, Morphine, PO Tylenol, Oxy IR DVT Prophylaxis: TEDs, SCDs, ASA Discharge Planning Discharge Planning: home with oppt Pain Management: Celebrex, Oxycontin, PO Tylenol, Oxy IR DVT Prophylaxis: TEDs, ASA Therapy: Physical Therapy, Occupational Therapy
[2017-01-16 13:07] VITALS: BP 112/58; PULSE 63; TEMP 36.4; O2SAT 95
--- NOTE | 2017-01-16 16:39 | Progress Note ---
Internal Med Progress Note Date of Service: Jan 16, 2017. Provider Documentation: SUBJECTIVE: Patient is sitting in his chair and does not seem to be in any distress. Pain has been tolerable. Did PT earlier today. Had a small BM yesterday. No other new change or complaint. OBJECTIVE: Vital Signs-as noted below Examination: General Appearance: WD/WN, In no apparent distress Head: normocephalic, atraumatic Eyes: PERRL, EOMI ENT: normal ENT inspection Neck: supple, Midline trachea, no adenopathy Respiratory/Chest: lungs clear B/L on auscultation Cardiovascular: regular rate, rhythm Abdomen/GI: normal bowel sounds, non tender Extremities: B/L pedal pulses are present. can move toes of the right foot. Lab data as noted below. ASSESSMENT & PLAN: S/P Right Knee Arthroplasty: POD # 2. Clinically & hemodynamically doing well. -Pain medications as needed as per severity of pain -PT/OT & DVT Prophylaxis as per Surgical team -Bowel regimen Hypokalemia: Resolved. Hypertension: Monitoring BP closely -Continue home medications under parameters. Dyslipidemia: Stable. Thank you for this consultation. We will follow the patient with you during their hospital stay. You can reach a [facility] via pager @ [phone]. Medical conditions are stable and discharge planning as per Primary team. Vital Signs: Date Time Temp Pulse Resp B/P (MAP) Pulse Ox O2 Delivery O2 Flow Rate FiO2 01/16/17 13:07 36.4 63 16 95 Room Air 01/16/17 09:21 Room Air 01/16/17 08:53 95 Room Air 01/16/17 07:45 36.4 63 16 112/58 (76) 95 Room Air 01/16/17 06:00 36.5 64 18 123/72 (89) 95 Room Air 01/16/17 00:30 Room Air 01/15/17 23:03 36.6 55 14 117/65 (82) 99 Room Air Lab Results: Results Past 24 Hours Test 01/16/17 05:04 01/16/17 05:08 Range/Units White Blood Count 7.85 4.8-10.8 K/uL Red Blood Count 3.38 4.7-6.1 M/uL Hemoglobin 10.7 14.0-18.0 g/dL Hematocrit 31.5 42-52 % Mean Corpuscular Volume 93.2 80-100 fL Mean Corpuscular Hemoglobin 31.7 25-34 pg Mean Corpuscular Hemoglobin Concent 34.0 32-36 g/dl RDW Standard Deviation 43.9 36.4-46.3 fL RDW Coefficient of Variation 12.8 11.5-14.5 % Platelet Count 187 130-400 K/uL Mean Platelet Volume 10.4 7.4-10.4 fL Sodium Level 144 136-145 mmol/L Potassium Level 3.9 3.5-5.1 mmol/L Chloride Level 110 98-107 mmol/L Carbon Dioxide Level 30 21-32 mmol/L Anion Gap 4.0 3-11 mmol/L Blood Urea Nitrogen 16 7-18 mg/dl Creatinine 0.78 0.60-1.40 mg/dl Est Creatinine Clear Calc Drug Dose 96.3 ml/min Estimated GFR () 109.0 Estimated GFR (Non- 94.1 BUN/Creatinine Ratio 20.2 10-20 Random Glucose 90 70-99 mg/dl Calcium Level 8.1 8.5-10.1 mg/dl
--- NOTE | 2017-01-20 11:14 | Discharge Summary ---
Orthopedic Discharge Summary Admission Date/Reason Jan 14, 2017 at 07:15 Right Knee Degenerative Joint Disease. Discharge Date/Disposition Jan 16, 2017 Home Diagnosis Principal Diagnosis: Right knee OA Secondary Diagnoses/Problems: Hypertension, Hyperlipidemia, Chronic DJD Procedure(s) Performed Right TKA Consultations Medical, PT Medication Reconciliation PRe admissions meds, ASA, pain ;meds. Admission Physical Exam As per Admitting History & Physical. Hospital Course Had post op hypokalemia at 3.3, was given K+ per medicine and stabilized at 3.9 on D/C, otherwise patient did well post operatively. Discharge Instructions Please refer to the electronic Patient Visit Report (Discharge Instructions) for additional information.
== END 2017-01-16 16:57 | disposition home or self-care (01) | DRG 470 ==
LOC: C.ACU 05:29 → C.3E 07:15 → ENRESERV 09:57
PROVIDERS: ADMIT Orthopaedic Surgery Sports Medicine; ATTEND Orthopaedic Surgery Sports Medicine
PROC: 0SRC0J9 Replacement of Right Knee Joint with Synthetic Substitute, Cemented, Open Approach (ICD-10-PCS; principal; 2017-01-14 07:30)
DX: M17.11 Unilateral primary osteoarthritis, right knee (principal); I10 Essential (primary) hypertension; M19.90 Unspecified osteoarthritis, unspecified site; E78.5 Hyperlipidemia, unspecified; E87.6 Hypokalemia; Z79.82 Long term (current) use of aspirin; Z79.899 Other long term (current) drug therapy

== ENCOUNTER 2018-08-30 07:35 | Inpatient (IN) ==
--- NOTE | 2018-08-18 10:34 | Anesthesiology Consultation ---
Date of Service August 18, 2018 Assessment & Plan (1) Encounter for pre-operative examination: Chart Review Chart Review: Acceptable Risk for Surgery and Patient seen in Pre Admission Testing Consults Requested none Teaching & Discussion Pre-Anesthesia Teaching/Discussion Notes: Instructed NPO after midnight before surgery, except medications with 15 cc of water. Medication instructions provided according to the PAT guidelines. History Surgery Operation Date: 08/30/18 07:45 Proposed Procedures p L2-L3 Decompression and Fusion, Possible L1-L2 Insitu; L3-L4 Removal Medicrea Hardware - Ezequiel Tinsley DO Height/Weight Height: 5 ft 6.5 in Weight: 89.1 kg Allergies Allergy/AdvReac Type Severity Reaction Status Date / Time Vcxxlsh-Mhd-Otc Reductase AdvReac Unknown MUSCLE Verified 08/13/18 10:11 Inhibitor WEAKNESS SEASONAL ALLERGIES Allergy Unknown SNEEZING, Uncoded 08/13/18 10:06 ITCHY EYES, STUFFY NOSE Medications Home Medications Medication Instructions Recorded Confirmed Last Taken acetaminophen 500 mg tablet 1,000 mg PO Q8 PRN tab 03/30/18 08/13/18 Unknown albuterol sulfate HFA 90 2 puffs INH Q6H PRN 03/30/18 08/13/18 Unknown mcg/actuation aerosol inhaler amlodipine 5 mg-benazepril 20 mg 1 cap PO QAM 03/30/18 08/13/18 08/13/18 capsule aspirin 81 mg chewable tablet 81 mg PO QPM 03/30/18 08/13/18 08/12/18 cinnamon bark 500 mg capsule 500 mg PO BID cap 03/30/18 08/13/18 Unknown diclofenac 1 % topical gel 2 gm TOP QID PRN 03/30/18 08/13/18 Unknown fluticasone 50 mcg/actuation nasal 1 sprays INTNAS DAILY PRN 03/30/18 08/13/18 Unknown spray,suspension loratadine 10 mg tablet 10 mg PO QPM 03/30/18 08/13/18 08/12/18 multivitamin tablet 1 tab PO QPM 03/30/18 08/13/18 08/12/18 omega-3 fatty acids 1,000 mg 1,000 mg PO BID cap 03/30/18 08/13/18 Unknown capsule meloxicam 7.5 mg PO DAILY 08/18/18 08/18/18 Unknown Past Medical History Medical History Hypertension (Chronic) Lumbar postlaminectomy syndrome (Chronic) Lumbar spinal stenosis (Chronic) Moderate L2-3 Lumbar stenosis with neurogenic claudication (Chronic 03/15/14) Restless leg syndrome (Chronic) Right knee DJD (Resolved) Arthritis HANDS History of hyperlipidemia History of wisdom tooth extraction Past Surgical History Surgical History H/O arthroscopy of shoulder (Resolved) Bilateral History of lumbar fusion (Resolved) 3 TOTAL BACK SURGERIES - UPCOMING WILL BE 4TH 03/15/14 - ETT 7.5, MAC #3, Secured @ 21cm, Grade 1 View. History of total knee arthroplasty (Resolved) Right Status post cervical spinal fusion (Resolved) History of appendectomy History of arthroscopy of right knee X3 History of colonoscopy History of uvulopalatopharyngoplasty Past Anesthesia History No Hx of Anesthesia Complications and No Family Hx of Anesthesia Complications History of PONV No Motion Sickness Screening History of Motion Sickness: No Social History Smoking Status: Never smoker Do You Dip or Chew Tobacco: No Hx Alcohol Use: Yes Alcohol type: wine alcohol intake frequency: holidays/special occasions only Hx Substance Use: No substance use type: does not use Exercise / Class Metabolic Activity II 4-5 Yardwork/Stairs/Walk up hill (Able to climb FOS. Denies CP or SOB. ) Review of Systems Patient denies chest pain, shortness of breath, dyspnea on exertion, reflux, cough, wheezing, palpitations. +joint pain (hands, back) Physical Exam Vital Signs BP: 149/81 P: 78 R: 16 T: 98.1 SPO2: 96% on RA ENMT Thyromental Distance: > or= 3.5 Finger Breadths (3.5) Mallampati Class: II Mouth / Teeth: 2 1. s/p UPPP Neck normal visual inspection and trachea midline Respiratory normal respiratory effort Auscultation: lungs clear to auscultation bilaterally Cardiovascular Rate/Rhythm: regular rate and regular rhythm Heart Sounds: no murmur Vessels: no carotid bruit Neurologic moves all extremities Psychiatric Orientation: alert and oriented x 3 Testing Electrocardiogram Date: 08/18/18 Findings: + NSR @ (71), + NSST changes and + no change from (12/16/16) Left axis deviation. Chest X-Ray Date: 08/18/18 Findings: + NAD FINDINGS: Incidental note is made of an anterior cervical spine fusion. The lung volumes are normal. There is no pneumothorax or pleural effusion. Linear left basilar opacity suggest atelectasis or scarring. There is no consolidation or evidence for pulmonary edema. There is no change in appearance of the chest. IMPRESSION: No acute cardiopulmonary findings. Stress Test Date: 04/15/13 Type: exercise Adequate test. No EKG or Echocardiographic evidence of exercise induced myocardial ischemia. Normal blood pressure response. He had "burning sensation" over the left lower anterior chest throughout the test, including the recovery period. He attained 95% of MPHR and 7 MET workload. Resting ECHO: Normal wall motion. Left ventricular systolic function is normal. Overall, LVEF is normal. Exercise ECHO: Augmentation of contractility noted in all segments. Left ventricular systolic function is normal. No wall motion abnormalities. Laboratory Results 08/18/18 11:08 08/18/18 11:08 Blood Type A Positive 08/18/18 11:08 Antibody Screen NEGATIVE 08/18/18 11:08 PT 10.3 Seconds (9.0-12.0) 08/18/18 11:08 INR 1.0 (0.9-1.1) 08/18/18 11:08 APTT 25.7 Seconds (21.0-31.0) 08/18/18 11:08 Urine Color Yellow 08/18/18 Unknown Urine Appearance Clear (Clear) 08/18/18 Unknown Urine pH 8.0 (4.5-7.5) H 08/18/18 Unknown Ur Specific [place] 1.010 (1.000-1.030) 08/18/18 Unknown Urine Protein Negative (Negative) 08/18/18 Unknown Urine Glucose (UA) 1+ (Negative) H 08/18/18 Unknown Urine Ketones Negative (Negative) 08/18/18 Unknown Urine Nitrite Negative (Negative) 08/18/18 Unknown Ur Leukocyte Esterase Negative (Negative) 08/18/18 Unknown
--- NOTE | 2018-08-18 10:34 | PAT Medication Instructions ---
Medication Instructions Date of Service August 18, 2018 Home Medications acetaminophen 500 mg tablet 1,000 mg PO Q8 NEEDED albuterol sulfate HFA 90 mcg/actuation aerosol inhaler 2 puffs INH Q6H NEEDED amlodipine 5 mg-benazepril 20 mg 1 cap PO QAM aspirin 81 mg chewable tablet 81 mg PO QPM cinnamon bark 500 mg capsule 500 mg PO BID diclofenac 1 % topical gel 2 gm TOP QID NEEDED fluticasone 50 mcg/actuation nasal 1 sprays INTNAS DAILY NEEDED loratadine 10 mg tablet 10 mg PO QPM multivitamin tablet 1 tab PO QPM omega-3 fatty acids 1,000 mg 1,000 mg PO BID meloxicam 7.5 mg PO DAILY ASK your surgeon for instructions meloxicam 7.5 mg PO DAILY STOP taking 2 weeks before surgery cinnamon bark 500 mg capsule 500 mg PO BID omega-3 fatty acids 1,000 mg 1,000 mg PO BID STOP taking 24 hours before surgery diclofenac 1 % topical gel 2 gm TOP QID NEEDED DO NOT take the morning of surgery amlodipine 5 mg-benazepril 20 mg 1 cap PO QAM fluticasone 50 mcg/actuation nasal 1 sprays INTNAS DAILY NEEDED Take morning of surgery With a small sip of water, OTHERWISE NOTHING TO EAT OR DRINK AFTER MIDNIGHT: acetaminophen 500 mg tablet 1,000 mg PO Q8 NEEDED albuterol sulfate HFA 90 mcg/actuation aerosol inhaler 2 puffs INH Q6H NEEDED Take evening before surgery acetaminophen 500 mg tablet 1,000 mg PO Q8 NEEDED albuterol sulfate HFA 90 mcg/actuation aerosol inhaler 2 puffs INH Q6H NEEDED aspirin 81 mg chewable tablet 81 mg PO QPM loratadine 10 mg tablet 10 mg PO QPM multivitamin tablet 1 tab PO QPM Other Notes If you have any questions please call us at [phone] or [phone] or [phone] or [phone]
[2018-08-18 11:36] LABS: Basophils # (auto) 0.01 K/uL (0-0.2); Basophils % (auto) 0.2 %; Eosinophils # (auto) 0.09 K/uL (0-0.5); Eosinophils % (auto) 2.1 %; Hematocrit (blood only) 44.6 % (42-52); Hemoglobin 15.5 g/dL (14.0-18.0); Lymphocytes # (auto) 1.61 K/uL (1.2-3.4); Lymphocytes % (auto) 38.3 %; Mean Corpuscular Hgb Conc 34.8 g/dL (32-36); Mean Corpuscular Volume 89.6 fL (80-100); Mean Platelet Volume 10.2 fL (7.4-10.4); Monocytes # (auto) 0.33 K/uL (0.11-0.59); Monocytes % (auto) 7.9 %; Neutrophils # (auto) 2.16 K/uL (1.4-6.5); Neutrophils % (auto) 51.5 %; Platelet Count 223 K/uL (130-400); RDW Coefficient of Variation 12.3 % (11.5-14.5); RDW Standard Deviation 39.3 fL (36.4-46.3); Red Blood Count 4.98 M/uL (4.7-6.1)
[2018-08-18 11:41] LABS: Appearance Urine Clear (Clear); Bilirubin Urine Negative (Negative); Color Urine Yellow; Glucose Urine UA 1+ (Negative); Ketones Urine Negative (Negative); Leukocyte Esterase Urine Negative (Negative); Nitrite Urine Negative (Negative); Protein Urine Negative (Negative); Urobilinogen Urine Negative (Negative)
[2018-08-18 11:47] LABS: Partial Thromboplastin Time 25.7 Seconds (21.0-31.0); Prothrombin Time 10.3 Seconds (9.0-12.0)
[2018-08-18 11:49] LABS: Calcium 9.1 mg/dl (8.5-10.1); Creatinine Clr Calc Pharmacy 114.8 ml/min; Est GFR (African American) 115.9; Potassium 3.4 mmol/L (3.5-5.1)
--- NOTE | 2018-08-18 12:12 | XRay Report ---
XR chest Pre-admission PA/Lat CLINICAL HISTORY: Preoperative evaluation COMPARISON STUDY: Chest radiograph December 16, 2016. FINDINGS: Incidental note is made of an anterior cervical spine fusion. The lung volumes are normal. There is no pneumothorax or pleural effusion. Linear left basilar opacity suggest atelectasis or scar ring. There is no consolidation or evidence for pulmonary edema. There is no change in appearance of the chest. IMPRESSION: No acute cardiopulmonary findings. Electronically signed by: Kirit Mackenzie M.D. 08/18/2018 12:11 PM
[~2018-08-30 07:35] MED LIST changes: +ACETAMINOPHEN 500 MG TAB PO SCH; -AMLO5CAP2 PO; -ASPI81CH2 PO; +CEFAZOLIN 2000MG 2,000 MG/15 ML SYR IV SCH; -CINN500T PO; +CeleBREX 200 MG CAP PO SCH; -DICL1GEL12 TOP; -FLUT50SP45; +GABAPENTIN 300 MG PO SCH; -GLUCTAB18 PO; +HYDROmorphone INJ 2 MG/ML SYR/VIAL ONE; -LORA10CA10 PO; +LR 15ML/HR IV SCH; -MELO7.5T5 PO; -MULT-106 PO; -OMEG5CAP PO; -VNTHFA/IN INH; +fentaNYL citrate 100 MCG/2 ML VIAL ONE
[2018-08-30] MEDS ORDERED: MIDAZOLAM HCL 1 MG/ML 2ML VIAL ONE (08:24)
[2018-08-30] MEDS ORDERED: fentaNYL citrate 100 MCG/2 ML VIAL ONE ×4 (08:25→10:52)
[2018-08-30] MEDS ORDERED: DEXAMETHASONE SOD INJ 4 MG/ML VIAL ONE (08:25)
[2018-08-30] MEDS ORDERED: HYDROmorphone INJ 2 MG/ML SYR/VIAL ONE (08:25)
[2018-08-30] MEDS ORDERED: ONDANSETRON INJ 2 MG/ML 2 ML VIAL ONE (08:25)
[2018-08-30] MEDS ORDERED: NEOSTIGMINE METHYLSULFATE 1 MG/ML 10ML VIAL ONE (08:25)
[2018-08-30] MEDS ORDERED: PROPOFOL IV EMULSION 10 MG/ML 20 ML VIAL IV ONE (08:25)
[2018-08-30] MEDS ORDERED: ROCURONIUM BROMIDE 10 MG/ML 5 ML VIAL ONE (08:25)
[2018-08-30] MEDS ORDERED: LIDOCAINE HCL 2% 2 ML VIAL/AMP(20MG/ML) INFIL ONE (08:25)
[2018-08-30] MEDS ORDERED: GLYCOPYRROLATE 0.2 MG/ML VIAL ONE (08:25)
[2018-08-30] MEDS ORDERED: LARYING-O-JET KIT (LTA) ONE (08:33)
[2018-08-30] MEDS ORDERED: MEPERIDINE HCL 25 MG/ML CARP IV PRN (08:37)
[2018-08-30] MEDS ORDERED: ONDANSETRON INJ 2 MG/ML 2 ML VIAL IV PRN ×2 (08:37→12:29)
[2018-08-30] MEDS ORDERED: LABETALOL HCL IV 5 MG/ML 20ML IV PRN (08:37)
[2018-08-30] MEDS ORDERED: fentaNYL citrate 100 MCG/2 ML VIAL IV PRN (08:37)
[2018-08-30] MEDS ORDERED: ePHEDrine sulfate 50 MG/ML AMP IV PRN (08:37)
[2018-08-30] MEDS ORDERED: PHENYLEPHRINE 100MCG/ML 5ML SYR IV PRN (08:37)
[2018-08-30] MEDS ORDERED: ATROPINE SULFATE 0.1 MG/ML 10ML SYR IV PRN (08:37)
[2018-08-30] MEDS ORDERED: HYDROmorphone INJ 1 MG/ML SYRINGE IV PRN (08:37)
--- NOTE | 2018-08-30 08:54 | History & Physical Bridge Note ---
Date of Service August 30, 2018 History & Physical Bridge Note I have examined the patient, reviewed the History & Physical and in the interval since the performance of the History & Physical I have noted the following changes of clinical significance: no changes noted
--- NOTE | 2018-08-30 08:56 | History & Physical Report ---
Date of Service August 30, 2018 Assessment & Plan (1) Neurogenic claudication due to lumbar spinal stenosis: Removal medically hardware L3-4, L2-3 decompression and fusion possible L1 -L2 in situ Present on Admission?: Yes History of Present Illness Chief Complaint: Back and leg pain Primary Care Provider: Zeb Rider This is a 68-year-old male well-known to me that presents with chronic persistent back and leg pain. After failing extensive course of nonoperative care is here for surgical intervention. Allergies Allergy/AdvReac Type Severity Reaction Status Date / Time Aigavvm-Bex-Mjp Reductase AdvReac Unknown MUSCLE Verified 08/30/18 08:04 Inhibitor WEAKNESS SEASONAL ALLERGIES Allergy Unknown SNEEZING, Uncoded 08/30/18 08:04 ITCHY EYES, STUFFY NOSE Home Medications Home Medications Medication Instructions Recorded Confirmed Type acetaminophen 500 mg tablet 1,000 mg PO Q8 PRN tab 03/30/18 08/30/18 History albuterol sulfate HFA 90 2 puffs INH Q6H PRN 03/30/18 08/30/18 History mcg/actuation aerosol inhaler amlodipine 5 mg-benazepril 20 mg 1 cap PO QAM 03/30/18 08/30/18 History capsule aspirin 81 mg chewable tablet 81 mg PO QPM 03/30/18 08/30/18 History cinnamon bark 500 mg capsule 500 mg PO BID cap 03/30/18 08/30/18 History diclofenac 1 % topical gel 2 gm TOP QID PRN 03/30/18 08/30/18 History fluticasone 50 mcg/actuation nasal 1 sprays INTNAS DAILY PRN 03/30/18 08/30/18 History spray,suspension loratadine 10 mg tablet 10 mg PO QPM 03/30/18 08/30/18 History multivitamin tablet 1 tab PO QPM 03/30/18 08/30/18 History omega-3 fatty acids 1,000 mg 1,000 mg PO BID cap 03/30/18 08/30/18 History capsule meloxicam 7.5 mg PO DAILY 08/18/18 08/30/18 History Past Med/Surg History Medical History Hypertension (Chronic) Lumbar postlaminectomy syndrome (Chronic) Lumbar spinal stenosis (Chronic) Moderate L2-3 Lumbar stenosis with neurogenic claudication (Chronic 03/15/14) Restless leg syndrome (Chronic) Right knee DJD (Resolved) Arthritis HANDS History of hyperlipidemia Social History Current Living Situation: Spouse Other Information That Helps Us Care for You: No Feels Safe at Home: Yes Smoking Status: Never smoker Do You Dip or Chew Tobacco: No Hx Alcohol Use: Yes Alcohol type: wine Alcohol Intake Frequency: holidays/ special occasions only Hx Substance Use: No Beliefs That Will Affect Care: None Preferred Language: Serbian Communication Ability: Effective Engineering Illustrator Required: No Physical Exam 2 Vital Signs (Past 24 Hours): Last Vital Signs Temp 36.8 C 08/30/18 08:01 Pulse 75 08/30/18 08:01 Resp 20 08/30/18 08:01 BP 164/90 H 08/30/18 08:01 Pulse Ox 96 08/30/18 08:01 Results & Data Medications Administered Acetaminophen (Tylenol) 1,000 mg PO PREOP SYED Stop: 08/30/18 18:00 Last Admin: 08/30/18 08:26 Dose: 1,000 mg Celecoxib (Celebrex) 200 mg PO PREOP SYED Stop: 08/30/18 18:00 Last Admin: 08/30/18 08:25 Dose: 200 mg Gabapentin (Neurontin) 300 mg PO PREOP SYED Stop: 08/30/18 18:00 Last Admin: 08/30/18 08:25 Dose: 300 mg Lactated Ringer's (Lr) 1,000 mls @ 15 mls/hr IV .Q24H SYED Stop: 08/31/18 05:59 Last Admin: 08/30/18 08:38 Dose: 15 mls/hr
[2018-08-30] MEDS ORDERED: BACITRACIN INJ 50,000 UNIT VIAL ONE (09:04)
[2018-08-30] MEDS ORDERED: BUPIVACAINE/EPINEPHRINE 0.5% MPF 1:200,000 30 ML VIAL ONE (09:05)
[2018-08-30] MEDS ORDERED: FLOSEAL HEMOSTATIC MATRIX 10ML TOP ONE (09:54)
[2018-08-30] MEDS ORDERED: KETOROLAC 30 MG/ML VIAL ONE (11:18)
--- NOTE | 2018-08-30 11:24 | Operative Report ---
Post Operative Report Pre & Post Diagnosis Operation Date: 08/30/18 09:35 Pre-Op Diagnosis: LUMBAR SPINAL STENOSIS W/NEUROGENIC CLAUDICATION Post-Op Diagnosis: LUMBAR SPINAL STENOSIS W/NEUROGENIC CLAUDICATION Procedure Operation Date: 08/30/18 09:35 Actual Procedures #1 removal of posterior instrumentation L3-4. #2 exploration of fusion L3-4. # 3 lumbar decompression bilateral medial facetectomies foraminotomies L1-L2 3. # 4 posterior spinal fusion L1-L2 3 #5 placement posterior instrumentation L2-3. #6 interbody fusion L2-3. #7 placement of peek 9 x 22 mm cage L2-3. #8 placement of local autograft in the posterior lateral gutters. #9 placement infuse collagen sponge, mass graft in the posterior gutters and ostial amp and interbody space. Surgeon Ezequiel Tinsley DO Student Dean Alyssa Savage Estimated Blood Loss 400 Findings Consistent with Post-Op Diagnosis Specimens None Description of Procedure Patient was met with preoperatively case discussed all questions addressed. After informed consent obtained patient was taken to the operative suite underwent intubation and placed in a prone position the Sam table on top of the [place] frame. All bony prominences well-padded eyes inspected to ensure no external pressure placed upon. This point the lumbar spine was prepped and draped in normal sterile fashion. Sharp dissection with the assistance of Bovie cautery was performed down to and exposing the lamina and transverse process of L1-L2 and instrumentation at all 3 4 bilaterally. And then proceeded to remove the hardware bilaterally exploring the fusion mass noting it to be intact. A complete laminectomy of L to L3 was performed including medial facetectomies foraminotomies addressing severe stenosis. Screws were then placed bilaterally at L2 and L3. Through a transforaminal approach on the right complete discectomy was performed in endplate curetted to subcortical bleeding bone and a 9 x 26 mm peek cage filled with osteo-amp bone graft tapped in position. The rods were then compressed locked in final position bilaterally. The transverse processes of L1-L2 and L3 burred to subcortical bleeding bone. Infuse collagen sponge mass graft local autograft placed in the posterior gutters. 15 round CHRISTOS drain inserted. Incision was then closed with 1 Vicryl fascia 2-0 Vicryl subcutaneous and 4 Monocryl for final skin closure. Please note Alyssa Savage was present at the entire procedure involved the patient positioning complex portions of the surgery and final skin closure. I attest to the content of the Intraoperative Record and any orders documented therein. Any exceptions are noted below.
--- NOTE | 2018-08-30 11:50 | Fluoroscopy Report ---
FL lumbar spine 2-3V HISTORY: 68 years-old Male REMOVE L3-4/L2-3 DECOMPRESSION/FUSION/POSS L1-2 status post surgery of th e lumbar spine COMPARISON: Fluoroscopic images 10/05/2017 TECHNIQUE: 2 spot fluoroscopic images of the lumbar spine were obtained utilizing 13.4 seconds fluoro scopy time FINDINGS: Posterior interbody flaca and screw fusion hardware is noted at what appears to be the L2-L3 level, exa ct level is not definitive secondary to magnification of the images. Discectomy changes are noted at what appears to be the L2-L3, L3-L4 and L4-L5 levels. Multilevel spondylitic spurring and facet arthr osis. No acute fracture or subluxation identified. IMPRESSION: Fluoroscopic assistance as above. Please see operative report for further details. The above report was generated using voice recognition software. It may contain grammatical, syntax o r spelling errors. Electronically signed by: David Mon M.D. 08/30/2018 11:49 AM
[2018-08-30] MEDS ORDERED: ESMOLOL HCL INJ 10 MG/ML 10ML VIAL IV ONE (12:01)
--- NOTE | 2018-08-30 12:20 | Anesthesiology Progress Note ---
Date of Service August 30, 2018 Anesthesia Post Procedure Vital Signs Vital Signs: Temp Pulse Pulse Resp BP Pulse Ox 08/30/18 12:15 75 18 146/80 H 99 08/30/18 12:05 36.1 C L 75 15 152/84 H 100 08/30/18 11:55 88 16 147/82 H 99 08/30/18 11:45 96 H 16 138/79 98 08/30/18 11:39 36.5 C 93 H 14 130/76 96 08/30/18 08:01 36.8 C 75 20 164/90 H 96 Pain Intensity Posterior Back: Pain Intensity: 3 Notes Mental Status: alert / awake / arousable Patient Amnestic to Procedure: Yes Nausea / Vomiting: adequately controlled Pain: adequately controlled Airway Patency, RR, SpO2: stable & adequate BP & HR: stable & adequate Hydration State: stable & adequate Anesthetic Complications: no major complications apparent and Pt Satisfied with anesthetic care
[2018-08-30] MEDS ORDERED: LORazepam 0.5 MG TAB PO PRN (12:29)
[2018-08-30] MEDS ORDERED: TRAMADOL HCL 50 MG TABLET PO PRN (12:29)
[2018-08-30] MEDS ORDERED: DO NOT ADMINISTER PNEUMOCOCCAL VACCINE PRN (12:29)
[2018-08-30] MEDS ORDERED: PROMETHAZINE HCL 12.5 MG in SODIUM CHLORIDE 0.9% 50 ML IV PRN (12:29)
[2018-08-30] MEDS ORDERED: ALBUTEROL HFA 8 GM INHALER INH PRN (12:29)
[2018-08-30] MEDS ORDERED: DO NOT ADMINISTER FLU VACCINE PRN (12:29)
[2018-08-30] MEDS ORDERED: OXYCODONE HCL IR 5 MG TAB (IMMEDIATE RELEASE) PO PRN (12:29)
[2018-08-30] MEDS ORDERED: SOD PHOSPHATE/SOD BIPHOSPHATE ENEMA 132 ML BTL PR PRN (12:29)
[2018-08-30] MEDS ORDERED: ONDANSETRON 4 MG TAB PO PRN (12:29)
[2018-08-30] MEDS ORDERED: MAGNESIUM HYDROXIDE SUSP 30 ML UDC PO PRN (12:29)
[2018-08-30] MEDS ORDERED: METOCLOPRAMIDE HCL INJ 5 MG/ML 2 ML VIAL IV PRN (12:29)
[2018-08-30] MEDS ORDERED: LORazepam 0.5 MG/1 ML VIAL IV PRN (12:29)
[2018-08-30] MEDS ORDERED: ALUMINUM/MAGNESIUM SUSP 30 ML UDC PO PRN (12:29)
[2018-08-30] MEDS ORDERED: ACETAMINOPHEN 500 MG TAB PO PRN ×2 (12:29)
[2018-08-30] MEDS ORDERED: FAMOTIDINE 20 MG TAB PO PRN (12:29)
[2018-08-30] MEDS ORDERED: ACETAMINOPHEN 1,000 MG/100 ML VIAL IV PRN (12:29)
[2018-08-30] MEDS ORDERED: HYDROmorphone INJ 0.5 MG/0.5 ML SYR IV PRN (12:29)
[2018-08-30] MEDS ORDERED: BISACODYL 10 MG SUPP PR PRN (12:29)
[2018-08-30] MEDS ORDERED: VOLUVEN IN NSS IV ONE (12:53)
[2018-08-30] MEDS: LACTATED RINGER'S 1,000 ML IV SCH ×2 (14:41→18:31)
[2018-08-30] MEDS: CEFAZOLIN 2000MG 2,000 MG/15 ML SYR IV SCH (17:02)
[2018-08-30] MEDS: KETOROLAC TROMETHAMINE 15 MG/ML VIAL IV SCH (19:37)
[2018-08-30] MEDS: MULTIVITAMIN TAB PO SCH (20:21)
[2018-08-30] MEDS: OMEGA-3 (PURIFIED FISH OIL) 1 GM CAP PO SCH (20:21)
[2018-08-30] MEDS: DOCUSATE SODIUM/SENNA 50/8.6MG TAB PO SCH (20:21)
[2018-08-30] MEDS: ASPIRIN 81 MG ECTAB PO SCH (20:21)
[2018-08-30] MEDS: LORATADINE 10 MG TAB PO SCH (20:21)
[2018-08-31] MEDS: KETOROLAC TROMETHAMINE 15 MG/ML VIAL IV SCH ×3 (01:13→13:18)
[2018-08-31] MEDS: CEFAZOLIN 2000MG 2,000 MG/15 ML SYR IV SCH (01:13)
[2018-08-31] MEDS ORDERED: Nursing to Pharmacy Communication ONE (01:27)
[2018-08-31] MEDS: POLYETHYLENE (MIRALAX) 17 GM PACK PO SCH ×4 (05:39→23:42)
[2018-08-31 05:58] LABS: Basophils # (auto) 0.01 K/uL (0-0.2); Basophils % (auto) 0.1 %; Eosinophils # (auto) 0.01 K/uL (0-0.5); Eosinophils % (auto) 0.1 %; Hematocrit (blood only) 33.9 % (42-52); Hemoglobin 11.7 g/dL (14.0-18.0); Immature Granulocytes # (auto) 0.03 K/uL (0.00-0.02); Immature Granulocytes % (auto) 0.2 %; Lymphocytes # (auto) 1.26 K/uL (1.2-3.4); Lymphocytes % (auto) 9.2 %; Mean Corpuscular Hgb Conc 34.5 g/dL (32-36); Mean Corpuscular Volume 90.2 fL (80-100); Mean Platelet Volume 10.1 fL (7.4-10.4); Monocytes # (auto) 1.09 K/uL (0.11-0.59); Neutrophils # (auto) 11.26 K/uL (1.4-6.5); Neutrophils % (auto) 82.4 %; Platelet Count 206 K/uL (130-400); RDW Coefficient of Variation 12.5 % (11.5-14.5); RDW Standard Deviation 40.6 fL (36.4-46.3); Red Blood Count 3.76 M/uL (4.7-6.1); White Blood Count 13.66 K/uL (4.8-10.8)
[2018-08-31 06:39] LABS: BUN Creatinine Ratio 14.5 (10-20); Calcium 8.2 mg/dl (8.5-10.1); Creatinine Clr Calc Pharmacy 91.4 ml/min; Est GFR (African American) 105.8; Est GFR (Non-African American) 91.3; Potassium 3.4 mmol/L (3.5-5.1)
[2018-08-31] MEDS: AMLODIPINE BESYLATE 5 MG TAB PO SCH (08:52)
[2018-08-31] MEDS: ENALAPRIL MALEATE 10 MG TAB PO SCH (08:52)
[2018-08-31] MEDS: OMEGA-3 (PURIFIED FISH OIL) 1 GM CAP PO SCH ×2 (08:53→20:26)
--- NOTE | 2018-08-31 10:19 | Orthopedic Progress Note ---
Date of Service August 31, 2018 Assessment & Plan (1) Neurogenic claudication due to lumbar spinal stenosis: At this time we will continue physical therapy monitor his CHRISTOS output anticipate discharge home in the next few days. Present on Admission?: Yes Subjective Back pain is controlled leg symptoms markedly improved. Physical Exam 2 Vital Signs (Past 24 Hours): Last Vital Signs Temp 36.5 C 08/31/18 07:00 Pulse 88 08/31/18 07:00 Resp 16 08/31/18 07:00 BP 158/83 H 08/31/18 07:00 Pulse Ox 97 08/31/18 07:00 Physical Exam: Patient is ambulating halls comfortably. His strength is intact.
[2018-08-31] MEDS: DOCUSATE SODIUM/SENNA 50/8.6MG TAB PO SCH (20:26)
[2018-08-31] MEDS: MULTIVITAMIN TAB PO SCH (20:26)
[2018-08-31] MEDS: ASPIRIN 81 MG ECTAB PO SCH (20:26)
[2018-08-31] MEDS: LORATADINE 10 MG TAB PO SCH (20:26)
[2018-09-01] MEDS: POLYETHYLENE (MIRALAX) 17 GM PACK PO SCH ×4 (05:59→22:58)
[2018-09-01] MEDS: ENALAPRIL MALEATE 10 MG TAB PO SCH (08:32)
[2018-09-01] MEDS: AMLODIPINE BESYLATE 5 MG TAB PO SCH (08:33)
[2018-09-01] MEDS: OMEGA-3 (PURIFIED FISH OIL) 1 GM CAP PO SCH ×2 (08:34→20:47)
--- NOTE | 2018-09-01 10:51 | Orthopedic Progress Note ---
Date of Service September 01, 2018 Assessment & Plan (1) Neurogenic claudication due to lumbar spinal stenosis: This time we will continue physical therapy monitor his CHRISTOS output hopefully discharge home tomorrow. Present on Admission?: Yes Subjective Back pain is controlled leg symptoms improved. Physical Exam 2 Vital Signs (Past 24 Hours): Last Vital Signs Temp 36.6 C 09/01/18 07:40 Pulse 70 09/01/18 07:40 Resp 16 09/01/18 07:40 BP 134/74 09/01/18 07:40 Pulse Ox 96 09/01/18 07:40 Physical Exam: On exam he is in the chair at the bedside. He has good strength testing. Appears comfortable.
--- NOTE | 2018-09-01 11:28 | Anesthesiology Progress Note ---
Date of Service August 31, 2018 Anesthesia Post Procedure Vital Signs Vital Signs: Temp Pulse Resp BP Pulse Ox 09/01/18 07:40 36.6 C 70 16 134/74 96 08/31/18 23:06 36.6 C 80 16 117/70 97 08/31/18 15:30 36.8 C 79 22 154/79 H 98 08/31/18 12:00 36.6 C 78 16 133/76 97 Pain Intensity Posterior Back: Pain Intensity: 5 Notes Mental Status: alert / awake / arousable and participated in evaluation Patient Amnestic to Procedure: Yes Nausea / Vomiting: adequately controlled Pain: adequately controlled Airway Patency, RR, SpO2: stable & adequate BP & HR: stable & adequate Hydration State: stable & adequate Anesthetic Complications: no major complications apparent and Pt Satisfied with anesthetic care
[2018-09-01] MEDS: CeleBREX 200 MG CAP PO SCH (12:15)
[2018-09-01] MEDS: MULTIVITAMIN TAB PO SCH (20:47)
[2018-09-01] MEDS: LORATADINE 10 MG TAB PO SCH (20:48)
[2018-09-01] MEDS: ASPIRIN 81 MG ECTAB PO SCH (20:48)
[2018-09-01] MEDS: DOCUSATE SODIUM/SENNA 50/8.6MG TAB PO SCH (20:48)
[2018-09-02] MEDS: POLYETHYLENE (MIRALAX) 17 GM PACK PO SCH ×2 (05:34→11:43)
[2018-09-02] MEDS: ENALAPRIL MALEATE 10 MG TAB PO SCH (07:56)
[2018-09-02] MEDS: OMEGA-3 (PURIFIED FISH OIL) 1 GM CAP PO SCH (07:56)
[2018-09-02] MEDS: AMLODIPINE BESYLATE 5 MG TAB PO SCH (07:56)
[2018-09-02] MEDS: CeleBREX 200 MG CAP PO SCH (07:56)
--- NOTE | 2018-09-02 10:00 | Discharge Summary ---
Date of Service September 02, 2018 Admission HPI Per Admitting Provider This is a 68-year-old male well-known to me that presents with chronic persistent back and leg pain. After failing extensive course of nonoperative care is here for surgical intervention. Principal Diagnosis Lumbar spinal stenosis with neurogenic claudication Discharge Data Allergies Allergy/AdvReac Type Severity Reaction Status Date / Time [id number]-[id number] Reductase AdvReac Unknown MUSCLE Verified 08/30/18 08:04 Inhibitor WEAKNESS SEASONAL ALLERGIES Allergy Unknown SNEEZING, Uncoded 08/30/18 08:04 ITCHY EYES, STUFFY NOSE Consultations 08/30/18 12:29 Consult Case Management - Discharge Planning Routine Procedures Performed Operation Date: 08/30/18 09:35 Actual Procedures p L1-L2 Decompression, L2-L3 Decompression and Fusion; (Not Applicable) - Ezequiel Tinsley DO s L3-L4 Removal of Hardware(Not Applicable) - Ezequiel Tinsley DO Ordered Studies 08/30/18 09:35 FL fluoroscopy <1hr Routine FL lumbar spine 2-3V Routine Hospital Course (1) Neurogenic claudication due to lumbar spinal stenosis: Patient underwent lumbar decompression fusion tolerated as well as taken the orthopedic floor postoperative. Postop day 1 he was up and ambulating nicely. Leg symptoms improved. He progressed to postop day #2 on postop day # 3 was discharged home. Discharge orders and instructions from the chart for further review. Total Time Total Time Spent Total Time Spent (In Minutes): Not applicable Discharge Plan Discharge Items Patient Disposition: Home - Self-Care Reason For Visit: LUMBAR SPINAL STENOSIS W/NEUROGENIC CLAUDICATION Discharge Diagnosis: Lumbar spinal stenosis with neurogenic claudication Discharge Goals: Improve function Activity: Per 'Additional Instructions' section Non-emergency contact: Primary Care Provider Call non-emergency contact if: you have any medication questions Follow-up/Referrals: Zeb Rider M.D. [Primary Care Provider] - Diet: Regular Addtl Provider Instructions: ACTIVITY RECOMMENDATIONS: SELF CARE INSTRUCTIONS AFTER THORACIC/LUMBAR FUSIONS 1. You may walk to your tolerance. It is good exercise for your legs and back. Expect some back and intermittent leg aches and pains. 2. You may perform "counter-top" level activities (make a sandwich, dalton with a project, etc.). 3. No bending or lifting of more than 10 pounds or back twisting of any nature (roll like a log when turning in bed). 4. You may ride in a car for 20-30 minutes at a time. No driving until after your first visit with your doctor. 5. Frequent changes of position and restricting sitting to 30 minutes at a time will help limit the amount of back spasms and stiffness you may experience. 6. You may discontinue the use of ambulatory aids (cane, crutches, etc.) once your strength and confidence allow. 7. You may standards engineer the shower and let water strike your incision when you arrive home at least once daily. Do not take a tub bath, sit in a hot tub or go into a swimming pool until after your first recheck in the office. SPECIAL CARE INSTRUCTIONS: VERY IMPORTANT TO READ AND REVIEW A. Your surgical incision has been closed with a cosmetic suture under the skin that will dissolve in about 6 weeks. In 14 days, you can use a pair of clean scissors and cut the suture that is left outside of the skin at the ends of your incision. 1. The small skin tapes can be removed 7 days after surgery if they have not fallen off by that point. 2. You may keep the wound open to air as much as possible to promote healing after post-op day number 5 unless told otherwise by your doctor. 3. If you think the wound looks like it is becoming infected (redness or worsening drainage) and/or you are experiencing fever, chill or worsening back pain and muscle spasms, contact the office so that we may evaluate you as soon as possible. B. Complications are uncommon, but please contact us if you have any signs or symptoms of: 1. wound infection (fever higher than 102.5 degrees F, redness, separation of wound, drainage, or increasing pain from the incision) 2. blood clots in legs (pain, swelling, redness and warmth in legs) 3. urinary tract infection (fever higher than 102.5 degrees F, burning upon urination or increased frequency of urination) 4. nerve problems (inability to walk on your toes or heels, numbness, loss of bowel or bladder control) 5. any other symptoms that concern you C. Please call the office at if you have any concerns or questions about your operation or recovery. D. No smoking! Smoking drastically decreases the chance of a solid fusion. E. Do not take any anti-inflammatory medications (Indocin, Advil, Motrin, Aspirin, Naprosyn, etc.) as these may inhibit the chance of a solid fusion. Tylenol is okay to take for pain. MANAGING PAIN AFTER SPINAL SURGERY 1. Narcotic medication is intended for short-term use and will be provided for surgical pain. Surgical pain usually lasts for a period of 4-6 weeks. Narcotic medication includes Percocet, Vicodin, Darvocet, Tylenol #3 or Lortab. 2. Longer-term pain is more appropriately treated with non-narcotic medication such as Tylenol ES. 3. Muscle spasm is not appropriately treated with narcotics. Muscle relaxers such as Soma, Flexeril or Skelaxin can be used along with Tylenol ES. 4. Remember that we all live with some "aches and pains". This is not unusual or uncommon after an injury or as we get older. a. Back pain is expected and may include muscle spasms for 4 to 6 weeks after surgery. The pain should gradually improve. If the pain worsens for no apparent reason, please contact the office. b. Intermittent leg pain may also be experienced and should not be concerned about unless it worsens for no apparent reason. If so, please contact the office. 5. We will provide appropriate medication within the normal guidelines of their prescribed use. We will also be very cautious and aware of potential abuse and extended duration of patients' medication needs. a. Pain medications are for your comfort and to assist with sleep and rest so that the tissue can heal. They are not provided in order to return to normal activity and should not be used through the day. To do so or worsening pain at night can result from ongoing tissue damage and development of tolerance to the prescribed medicine. 6. Please allow 2-3 days to process refills. Prescriptions will not be mailed but must be picked up at the office. FOLLOW UP VISIT: Keep your scheduled follow-up appointment. Any questions, please call the office at . Prescriptions: New tramadol 50 mg Tablet 50 mg PO Q4H PRN (Reason: Pain, Moderate) Qty: 30 RF: 0 oxycodone 5 mg Tablet 5 mg PO Q4H PRN (Reason: Pain, Severe) Qty: 30 RF: 0 celecoxib [Celebrex] 200 mg Capsule 200 mg PO QAM Qty: 30 RF: 2 Continue acetaminophen [Tylenol Extra Strength] 500 mg tablet 1,000 mg PO Q8 PRN (Reason: Pain) RF: 0 amlodipine-benazepril [Lotrel] 5-20 mg capsule 1 cap PO QAM RF: 0 aspirin 81 mg tablet,chewable 81 mg PO QPM RF: 0 albuterol sulfate 90 mcg/actuation HFA aerosol inhaler 2 puffs INH Q6H PRN (Reason: SEASONAL ALLERGIES) RF: 0 fluticasone [Flonase Allergy Relief] 50 mcg/actuation spray,suspension 1 sprays INTNAS DAILY PRN (Reason: Nasal Congestion) RF: 0 loratadine 10 mg tablet 10 mg PO QPM RF: 0 cinnamon bark 500 mg capsule 500 mg PO BID RF: 0 diclofenac sodium [Voltaren] 1 % gel 2 gm TOP QID PRN (Reason: Pain) RF: 0 multivitamin tablet 1 tab PO QPM RF: 0 omega-3 fatty acids 1,000 mg capsule 1,000 mg PO BID RF: 0 meloxicam 7.5 mg Tablet 7.5 mg PO DAILY RF: 0 Stand-Alone Forms: [facility] Discharge Orders: Discharge Order (Routine); Ordered 09/02/18 Ordered By: Ezequiel Tinsley Admission Data Admit Date/Time: 08/30/18 11:29 Attending Provider: Ezequiel Tinsley Admit Provider: Ezequiel Tinsley Primary Care Provider: Zeb Rider Service: Surgical Services
== END 2018-09-02 12:47 | disposition home or self-care (01) | DRG 455 ==
LOC: ASU 07:35 → 3E 11:29